=== PATIENT | male | born 1995 | race African-American/Black ===

== ENCOUNTER 2019-01-22 20:39 | Emergency (ER) | payer SELFPAY ==
[2019-01-22 20:44] VITALS: BP 170/87
[2019-01-22] MEDS ORDERED: POLYMYXIN B SULFATE/TMP OPH SOLN (10 ML/ER DISP) OS PRN (22:43)
--- NOTE | 2019-01-22 22:49 | ER Document Report ---
HPI - HPI Patient complains to provider of: pink eye Time Seen by Provider: 01/22/19 22:43 Pain Level: Denies Context: 23 male with chief complaint of pinkeye times 4 days. Multiple sick contacts in the house that were diagnosed with pinkeye. Patient states his eye is red, itching, and there is purulent discharge coming from it. Patient has tried his kids Vigamox drops, erythromycin paste, and a friend's old Polytrim drops that a year ago. He states she is got no relief from them. His states that he is only been using the Vigamox 1 drop 2 times per day. - REPRODUCTIVE Reproductive: DENIES: : Past Medical History - Social History Smoking Status: Current Every Day Smoker Chew tobacco use (# tins/day): No Frequency of alcohol use: Social Drug Abuse: Marijuana Family History: None Patient has suicidal ideation: No Patient has homicidal ideation: No Renal/ Medical History: Denies: Hx Peritoneal Dialysis Vertical Provider Document - CONSTITUTIONAL Agree With Documented VS: Yes - INFECTION CONTROL TRAVEL OUTSIDE OF THE [place] IN LAST 30 DAYS: No - HEENT HEENT: Atraumatic, Conjuctival Injection - Left eye with severe injection and small amount of purulent discharge in the eye. The eyelashes are matted. Extraocular movements intact. No vision changes. Course - Re-evaluation Re-evalutation: 01/22/19 22:51 Patient with obvious injection in the left eye. I educated patient and that he 1) should not take other peoples antibiotics and 2) the correct regimen to take them as he was not taking them correctly. Will prescribe him Polytrim drops and I have instructed him to place 2 drops in the eye every 2-3 hours no more than 6 times per day. I have given him strict return precautions and strict hygiene precautions. Stable for discharge. 01/22/19 22:52 - Vital Signs Vital signs: Temp Pulse Resp BP Pulse Ox 98 F 88 20 170/87 H 100 01/22/19 20:43 01/22/19 20:43 01/22/19 20:43 01/22/19 20:43 01/22/19 20:43 Discharge - Discharge Clinical Impression: Conjunctivitis Qualifiers: Conjunctivitis type: acute Acute conjunctivitis type: unspecified Laterality: left Qualified Code(s): H10.32 - Unspecified acute conjunctivitis, left eye Condition: Good Disposition: HOME, SELF-CARE Additional Instructions: Your eye redness is likely due to a viral infection. You have been sent home with a prescription for eyedrops which you can start. To drops in your left eye every 2-3 hours no more than 6 times per day.. Please return immediately if you begin to have worsening discomfort in the eyes, vision loss, swelling in the eyes, fever, or you have any other symptoms that are worrisome to you. If you do not start to see improvement in the next 2-3 days while being on antibiotics please return to the emergency department for reevaluation. Forms: Return to Work
== END 2019-01-23 00:13 | disposition home or self-care (01) ==
LOC: EDSEX → ER 20:39
DX: H10.32 Unspecified acute conjunctivitis, left eye (principal); F17.200 Nicotine dependence, unspecified, uncomplicated
CPT/HCPCS: 99283; J3490

== ENCOUNTER 2019-01-25 02:18 | Emergency (ER) | payer SELFPAY ==
[2019-01-25 02:23] VITALS: BP 139/89
== END 2019-01-25 03:25 | disposition left against medical advice (07) ==
LOC: ER 02:18
DX: Z53.21 Procedure and treatment not carried out due to patient leaving prior to being seen by health care provider (principal)